=== PATIENT | male | born 1975 | race American Indian/Alaskan Native ===

== ENCOUNTER 2018-02-23 12:13 | Emergency (ER) | payer BC, OTHER ==
[2018-02-23 12:31] VITALS: BP 114/75; PULSE 71; RESP 18; TEMP 98.5; O2SAT 99
--- NOTE | 2018-02-23 12:56 | C.PDOC ---
History Of Present Illness 42yo male, otherwise well, comes to ER reporting subjective fever, generalized malaise, and bodyaches x 3 days. Patient states he thought he had the flu and took OTC Theraflu. Patient states the symptoms have almost resolved but still feels tired. Otherwise, no persistent fever, chills, cough, chest pain, shortness of breath, vomiting. <Hakeem Lawson DO - Last Filed: 02/23/18 13:14> <Flores Sherman - Last Filed: 02/23/18 12:54> History Per: Patient History/Exam Limitations: no limitations Onset/Duration Of Symptoms: Days <Hakeem Lawson DO - Last Filed: 02/23/18 13:14> Time Seen by Provider: 02/23/18 12:35 Chief Complaint (Nursing): Fever Past Medical History Vital Signs: Last Vital Signs Temp 98.5 F 02/23/18 12:28 Pulse 71 02/23/18 12:28 Resp 18 02/23/18 12:28 BP 114/75 02/23/18 12:28 Pulse Ox 99 02/23/18 12:28 - Social History Hx Alcohol Use: Yes Hx Substance Use: No - Immunization History Hx Tetanus Toxoid Vaccination: No Hx Influenza Vaccination: No Hx Pneumococcal Vaccination: No <Flores Sherman - Last Filed: 02/23/18 12:54> Vital Signs: Last Vital Signs Temp 98.5 F 02/23/18 12:28 Pulse 71 02/23/18 12:28 Resp 18 02/23/18 12:28 BP 114/75 02/23/18 12:28 Pulse Ox 99 02/23/18 12:57 <Hakeem Lawson DO - Last Filed: 02/23/18 13:14> ED Course And Treatment O2 Sat by Pulse Oximetry: 99 <Flores Sherman - Last Filed: 02/23/18 12:54> Medical Decision Making Medical Decision Making: Patient with complaints of subjective fever, malaise, headache and bodyaches for 3 days. Patient appears well, comfortable non-toxic and well hydrated in no distress. Exam was unremarkable and patient has no fever and normal vital signs. Recommend rest fluids, analgesics and supportive treatment. Patient stable for discharge. <Flores Sherman - Last Filed: 02/23/18 12:54> Disposition Counseled Patient/Family Regarding: Diagnosis, Need For Followup, Rx Given - Disposition Disposition Time: 12:55 - POA Present On Arrival: None <Flores Sherman - Last Filed: 02/23/18 12:54> <Hakeem Lawson DO - Last Filed: 02/23/18 13:14> - Disposition Referrals: [facility] [Outside] [facility] [Outside] Disposition: HOME/ ROUTINE Condition: STABLE Additional Instructions: Take Tylenol or Motrin alternating every 4-6 hours for Fever 100.4F or higher. Rest and drink plenty of fluids. Follow up with your primary medical doctor or clinic in 2-5 days for further evaluation. Return to the emergency department at any time if symptoms persist or worsen. Instructions: Adenovirus Infections Forms: [facility] (Chinese), Work Excuse - Clinical Impression Clinical Impression: Influenza-like illness
--- NOTE | 2018-02-23 13:16 | C.PDOC ---
History Of Present Illness 42yo male, otherwise well, comes to ER reporting subjective fever, generalized malaise and bodyaches x 3 days. Patient states he thought he had the flu, so her took over the counter Theraflu with moderate relief of symptoms. Patient presents to the ER today as he still feels "tired." Otherwise, he denies any persistent fever, chills, chest pain, shortness of breath, cough or vomiting. He has no additional complaints. Time Seen by Provider: 02/23/18 12:35 Chief Complaint (Nursing): Fever History Per: Patient History/Exam Limitations: no limitations Onset/Duration Of Symptoms: Days Current Symptoms Are (Timing): Better Additional History Per: Patient Past Medical History Reviewed: Historical Data, Nursing Documentation, Vital Signs Vital Signs: Last Vital Signs Temp 98.5 F 02/23/18 12:28 Pulse 71 02/23/18 12:28 Resp 18 02/23/18 12:28 BP 114/75 02/23/18 12:28 Pulse Ox 99 02/23/18 12:28 - Medical History PMH: No Chronic Diseases Surgical History: No Surg Hx Family History: States: No Known Family Hx - Social History Hx Alcohol Use: Yes Hx Substance Use: No - Immunization History Hx Tetanus Toxoid Vaccination: No Hx Influenza Vaccination: No Hx Pneumococcal Vaccination: No Review Of Systems Except As Marked, All Systems Reviewed And Found Negative. Constitutional: Positive for: Malaise. Negative for: Fever, Chills Cardiovascular: Negative for: Chest Pain Respiratory: Negative for: Cough, Shortness of Breath Gastrointestinal: Negative for: Vomiting Physical Exam - Physical Exam Appears: Non-toxic, No Acute Distress Skin: Normal Color, Warm, Dry Head: Atraumatic, Normacephalic Eye(s): bilateral: Normal Inspection, PERRL, EOMI Ear(s): Bilateral: Normal Nose: Normal Oral Mucosa: Moist Throat: Normal, No Erythema, No Exudate Neck: Normal ROM, Supple Chest: Symmetrical Cardiovascular: Rhythm Regular Respiratory: Normal Breath Sounds, No Wheezing Gastrointestinal/Abdominal: Normal Exam, Soft Back: Normal Inspection Extremity: Normal ROM Neurological/Psych: Oriented x3 ED Course And Treatment O2 Sat by Pulse Oximetry: 99 (RA) Pulse Ox Interpretation: Normal Medical Decision Making Medical Decision Making: Patient with complaints of subjective fever, malaise, headache and bodyaches for 3 days. Patient appears well, comfortable non-toxic and well hydrated in no distress. Exam was unremarkable and patient has no fever and normal vital signs. Recommend rest fluids, analgesics and supportive treatment. Patient stable for discharge. Disposition - Disposition Referrals: [facility] [Outside] [facility] [Outside] Disposition: HOME/ ROUTINE Disposition Time: 13:08 Condition: STABLE Additional Instructions: Take Tylenol or Motrin alternating every 4-6 hours for Fever 100.4F or higher. Rest and drink plenty of fluids. Follow up with your primary medical doctor or clinic in 2-5 days for further evaluation. Return to the emergency department at any time if symptoms persist or worsen. Instructions: Adenovirus Infections Forms: [facility] (Chadian), Work Excuse - Clinical Impression Clinical Impression: Influenza-like illness - PA / [employer] / Resident Statement MD/DO has reviewed & agrees with the documentation as recorded. - Scribe Statement The provider has reviewed the documentation as recorded by the Teo Garcia Provider Attestation: All medical record entries made by the Teo were at my direction and personally dictated by me. I have reviewed the chart and agree that the record accurately reflects my personal performance of the history, physical exam, medical decision making, and the department course for this patient. I have also personally directed, reviewed, and agree with the discharge instructions and disposition.
== END 2018-02-23 13:08 | disposition home or self-care (01) ==
LOC: C.ER 12:13
DX: J11.1 Influenza due to unidentified influenza virus with other respiratory manifestations (principal)